=== PATIENT | female | born 1965 | race Caucasian/White ===

== ENCOUNTER 2017-09-19 06:27 | Day surgery (SDC) | payer BC ==
[2017-09-19] MEDS ORDERED: PROPOFOL 10 MG/ML VIAL IV ONE (06:28)
[2017-09-19] MEDS ORDERED: MIDAZOLAM HCL 2MG/2ML VIAL IV ONE (06:28)
[2017-09-19] MEDS ORDERED: LIDOCAINE 2% MDV (20MG/ML) 20ML VIAL IV ONE (06:28)
--- NOTE | 2017-09-22 09:31 | Operative Note ---
DATE OF SURGERY: 09/19/2017 SURGEON: Theo Jerome MD OPERATION: COLONOSCOPY. INDICATIONS: This is a 52-year-old female with history of intermittent episodes of diarrhea and loose bowel movements who presented for colonoscopy. POSTOPERATIVE DIAGNOSES: 1. Poor bowel preparation, cannot exclude any significant lesions. Status post random biopsies. 2. Grade 1 internal hemorrhoids. ANESTHESIA: Sedation is per Anesthesia. Pulse oximetry was monitored throughout the procedure to maintain O2 saturation of 90% or greater. Supplemental oxygen was administered via nasal cannula. Cardiac and vital signs were monitored throughout the duration of the procedure, and they were stable. The procedure of colonoscopy and risks and alternatives of the procedure, including the risk of bleeding and perforation, among others, were explained to the patient who voiced understanding and agreed to have the procedure done. Physical examination was performed, and the patient was found stable for sedation. PROCEDURE: The patient was placed in the left lateral position. Sedation was initiated. A digital rectal exam was performed and showed some mild external hemorrhoids with no palpable rectal masses. An Olympus PCF-180AL colonoscope was then inserted into the rectum under direct visualization. It was advanced to the cecum with difficulty. The difficulty was due to suboptimal bowel preparation and malfunctioning scope requiring changing the scope. The colonoscope was then withdrawn while carefully examining the colonic mucosal surfaces. The bowel preparation was poor in the cecum, ascending colon, and descending colon. There were no lesions were noted. Random colon biopsies were obtained. In the rectum, retroflexion was performed and grade 1 internal hemorrhoids were noted. The colonoscope was then withdrawn and the procedure was terminated. The patient tolerated the procedure well without any immediate complications. She remained with stable vital signs and was transferred to the recovery room. RECOMMENDATIONS: 1. The patient should be on a high-fiber diet. 2. The patient is to have a repeat colonoscopy in a year with 2-day bowel preparation. Thank you for allowing me to participate in the care of your patient. CC: DO HODA Ribeiro
== END 2017-09-19 08:34 | disposition home or self-care (01) ==
LOC: HOP 06:27
PROVIDERS: ATTEND Internal Medicine Gastroenterology
DX: R19.7 Diarrhea, unspecified (principal); K21.9 Gastro-esophageal reflux disease without esophagitis; K64.0 First degree hemorrhoids
CPT/HCPCS: 84703

== ENCOUNTER 2018-01-02 08:43 | Day surgery (SDC) | payer BC ==
--- NOTE | 2018-01-05 12:50 | Operative Note ---
DATE OF SURGERY: 01/02/2018 SURGEON: Theo Jerome MD OPERATION: ESOPHAGOGASTRODUODENOSCOPY. INDICATIONS: This is a 52-year-old female with history of abdominal pain who presented for esophagogastroduodenoscopy. POSTOPERATIVE DIAGNOSES: 1. Mild gastritis. 2. Otherwise normal esophagus and duodenum. ANESTHESIA: Sedation is per Anesthesia. Pulse oximetry was monitored throughout the procedure to maintain O2 saturation of 90% or greater. Supplemental oxygen was administered via nasal cannula. Cardiac and vital signs were monitored throughout the duration of the procedure, and they were stable. The procedure of esophagogastroduodenoscopy and risks and benefits of the procedure, including the risk of bleeding and perforation, among others, were explained to the patient who voiced understanding and agreed to have the procedure done. Physical examination was performed, and the patient was found stable for sedation. PROCEDURE: The patient was placed in the left lateral position. Sedation was initiated. A plastic bite block was inserted into the oral cavity. The Olympus QBV970 gastroscope was introduced into the oral cavity and advanced to the proximal esophagus without difficulty. The esophageal mucosa was carefully examined upon introduction of the gastroscope. The proximal and mid and distal esophageal mucosa appeared normal. The gastroscope was then advanced into the stomach, and surveillance of the stomach revealed mild erythema along the gastric body and antrum but no ulcers were noted. The gastroscope was then advanced to the descending duodenum without difficulty. The duodenal bulb and descending duodenum appeared normal. The gastroscope was then withdrawn into the stomach and retroflexion was performed. There were no lesions noted. The gastroscope was then straightened and withdrawn while carefully examining the gastric and esophageal mucosa. No other lesions noted. Multiple gastric biopsies were obtained. The patient remained with stable vital signs and was transferred to the recovery room. RECOMMENDATIONS: The patient is to continue on her omeprazole and I will follow up on the biopsies and I will see her back in the office as needed. Thank you for allowing me to participate in the care of your patient. CC: DO HODA Ribeiro
== END 2018-01-02 10:30 | disposition home or self-care (01) ==
LOC: HOP 08:43
PROVIDERS: ATTEND Internal Medicine Gastroenterology
DX: R10.9 Unspecified abdominal pain (principal); K29.70 Gastritis, unspecified, without bleeding; K21.9 Gastro-esophageal reflux disease without esophagitis
CPT/HCPCS: 81025